=== PATIENT | female | born 1945 | race Caucasian/White ===

== ENCOUNTER 2017-06-25 10:36 | Emergency (ER) | payer MEDICARE ==
[~2017-06-25] VITALS: Ht 167.6 cm; Wt 98.0 kg
[~2017-06-25 10:36] MED LIST: LEVO.15 PO; SIMV40TA PO
[2017-06-25 10:43] VITALS: BP 158/73; PULSE 84; RESP 16; TEMP 98.3; O2SAT 97
[2017-06-25] MEDS ORDERED: CIPR-9 PO (13:09)
[2017-06-25] MEDS ORDERED: ASPI81CH7 CHEW (13:09)
[2017-06-25] MEDS ORDERED: CLOB0.055 TOPICAL (13:09)
[2017-06-25] MEDS ORDERED: CEPH-460 PO (14:08)
[2017-06-25] MEDS ORDERED: BACT800T5 PO (14:08)
--- NOTE | 2017-06-25 14:09 | PD ---
HPI Chief Complaint: Skin Problem Time Seen by Provider: 13:57 Travel History International Travel<30 days: No Contact w/Intl Traveler<30days: No Traveled to known affect area: No History of Present Illness HPI 72 year old female here with a skin infection to her abdomen times one day. She reports she has small pustule on the right side of her abdomen which has steadily increased in size and redness in the last 24 hours. She denies fever or chills. The area spontaneously drained today. Symptom severity is moderate. Symptoms severity is moderate. PFSH Past Medical History Medical History: Denies Significant Hx High Cholesterol: Yes Diminished Hearing: No Integumentary: Yes Immunizations Current: Yes Thyroid Disease: Yes Tetanus Vaccination: < 5 Years Influenza Vaccination: Yes Past Surgical History Eye Surgery: Yes Social History Alcohol Use: Yes (OCC) Tobacco Use: No Substance Use: No Allergies-Medications (Allergen,Severity, Reaction): Coded Allergies: No Known Allergies (Unverified Adverse Reaction, Unknown, 06/25/17) Reported Meds & Prescriptions Reported Meds & Active Scripts Active Reported Clobetasol Topical (Clobetasol Propionate) 0.05% Cream 1 Applic TOPICAL BID Cipro (Ciprofloxacin HCl) 500 Mg Tab 500 Mg PO BID Aspirin Children's (Aspirin) 81 Mg Chew 81 Mg CHEW DAILY Simvastatin 40 Mg Tab 20 Mg PO HS Synthroid (Levothyroxine Sodium) 150 Mcg Tab 137 Mcg PO DAILY Review of Systems ROS Limitations: Unresponsive General / Constitutional: No: Fever Physical Exam Narrative GENERAL: Alert well-appearing 9-year-old female SKIN: Warm and dry. 7 cm diameter area of erythema with central blister draining yellowish clear fluid. No induration or fluctuance. HEAD: Normocephalic. EYES: No injection or drainage. NECK: Supple GASTROINTESTINAL: Abdomen soft, non-tender, nondistended. Data Data Last Documented VS Vital Signs Date Time Temp Pulse Resp B/P (MAP) Pulse Ox O2 Delivery O2 Flow Rate FiO2 06/25/17 13:09 (101) 06/25/17 10:43 98.3 84 16 97 Room Air MDM Medical Decision Making Medical Screen Exam Complete: Yes Emergency Medical Condition: Yes Differential Diagnosis Abscess, cellulitis, folliculitis Narrative Course 72-year-old female here with cellulitis to her abdomen. She is nontoxic- appearing. She'll be given Bactrim and Keflex. Return precautions were discussed. Diagnosis Primary Impression: Cellulitis Qualified Codes: L03.311 - Cellulitis of abdominal wall Referrals: Primary Care Physician Additional Instructions: Antibiotics as directed. Return to the emergency department if he developed new or worsening symptoms such as increasing redness, fever or chills Scripts Cephalexin (Keflex) 500 Mg Capsule 500 MG PO Q6H for Infection for 10 Days, #40 CAP 0 Refills Prov: Ysabel Montejo 06/25/17 Sulfamethoxazole-Trimethoprim (Bactrim DS) 800-160 Mg Tab 1 TAB PO BID for Infection, #20 TAB 0 Refills Prov: Ysabel Montejo 06/25/17 Disposition: 01 DISCHARGE HOME Condition: Stable Ysabel Montejo Jun 25, 2017 14:09
== END 2017-06-25 14:26 | disposition home or self-care (01) ==
LOC: PHED 10:36 → PHEFT 14:26
DX: L03.311 Cellulitis of abdominal wall (principal); E07.9 Disorder of thyroid, unspecified; E78.00 Pure hypercholesterolemia, unspecified
CPT/HCPCS: 99283